=== PATIENT | male | born 1965 | race Caucasian/White ===

== ENCOUNTER 2019-10-17 09:58 | Emergency (ER) | payer SELFPAY ==
[~2019-10-17] VITALS: Ht 170.2 cm; Wt 93.5 kg
--- NOTE | 2019-10-17 10:25 | NUR ---
PT AMBULATED BACK TO ROOM WITH A SMOOTH AND STEADY GAIT, NAD, P/W/D, RESP WNL, FCS NO SOB, SPEECH SLIGHTLY RUSHED, VSS, WCTM. PT AMBULATED TO AND FROM BATHROOM WITH A SMOOTH AND STEADY GAIT, UA COLLECTED, RESTING ON GURNEY, CHANGED INTO GOWN, CALL LIGHT ON LAP. YODIT NÚÑEZ AT FOR EVAL AND DISCUSSING POC.
[2019-10-17] MEDS ORDERED: KETOROLAC 30 MG/1 ML IVPush ONE (10:30)
[2019-10-17] MEDS ORDERED: MORPHINE SULFATE 4 MG/ML, 1ML IVPush PRN (10:30)
[2019-10-17] MEDS ORDERED: SODIUM CHLORIDE FLUSH 10ML SYR IVF ONE (10:30)
[2019-10-17] MEDS ORDERED: ONDANSETRON 2MG/ML, 2ML IVPush ONE (10:30)
[2019-10-17] MEDS ORDERED: KETOROLAC 30 MG/1 ML ONE (10:35)
[2019-10-17] MEDS ORDERED: ONDANSETRON 2MG/ML, 2ML ONE (10:35)
[2019-10-17 11:12] LABS: BASOPHILS # (AUTO) 0.04 x10^3/uL (0-0.1); BASOPHILS % (AUTO) 1 % (0-1); EOSINOPHILS # (AUTO) 0.19 x10^3/uL (0-0.4); EOSINOPHILS % (AUTO) 4 % (1-7); LYMPHOCYTES # (AUTO) 2.33 x10^3/uL (1-3.4); LYMPHOCYTES % (AUTO) 43 % (22-44); MD NO; MEAN CORPUSCULAR HEMOGLOBIN 28.7 pg (27.5-34.5); MEAN CORPUSCULAR HGB CONC 34.5 g/dL (33.2-36.2); MEAN PLATELET VOLUME 8.9 fL (7.4-10.4); MONOCYTES # (AUTO) 0.42 x10^3/uL (0.2-0.8); MONOCYTES % (AUTO) 8 % (2-9); NEUTROPHILS # (AUTO) 2.43 x10^3/uL (1.8-6.8); NEUTROPHILS % (AUTO) 45 % (42-75); PLATELET COUNT 177 x10^3/uL (130-400); RED BLOOD COUNT 5.93 x10^6/uL (4.38-5.82); RED CELL DISTRIBUTION WIDTH 13.2 % (9.4-14.8)
[2019-10-17 11:22] LABS: ALBUMIN 4.1 g/dL (3.4-5.0); ANION GAP 3 mmol/L (5-15); CALCIUM 9.2 mg/dL (8.5-10.1); CHLORIDE 107 mmol/L (98-107)
[2019-10-17 11:25] LABS: MICROSCOPIC NOT IND
[2019-10-17 11:27] LABS: ALANINE AMINOTRANSFERASE 93 U/L (12-78); ALKALINE PHOSPHATASE 83 U/L (45-117); BILIRUBIN,TOTAL 0.6 mg/dL (0.2-1.0); CREATININE 0.95 mg/dL (0.7-1.3); TOTAL PROTEIN 7.7 g/dL (6.4-8.2)
--- NOTE | 2019-10-17 11:30 | NUR ---
PT TAKEN TO CT VIA LA[facility] BOURNE, RESP WNL, P/W/D.
[2019-10-17 11:37] LABS: CULTURE INDICATED? NO
[2019-10-17 12:20] VITALS: BP 114/92
--- NOTE | 2019-10-17 12:40 | NUR ---
Patient given discharge instructions and they have confirmed that they understand the instructions. Patient ambulatory with steady gait. Denies additional questions at this time, NAD, RESP WNL, VSS, MAEx4. COnfirmed he will follow up with st[facility]
== END 2019-10-17 12:38 | disposition home or self-care (01) ==
LOC: ED 11:57
DX: E11.65 Type 2 diabetes mellitus with hyperglycemia (principal); I10 Essential (primary) hypertension; R10.9 Unspecified abdominal pain; R31.9 Hematuria, unspecified; M54.9 Dorsalgia, unspecified
CPT/HCPCS: 36415; 74176; 80053; 81003; 83690; 85025; 96374; 96375; 99284; J1885; J2405

== ENCOUNTER 2020-03-20 10:28 | Emergency (ER) | payer SELFPAY ==
[~2020-03-20] VITALS: Ht 170.2 cm; Wt 92.2 kg
--- NOTE | 2020-03-20 11:18 | NUR ---
PT WITH MULTIPLE COMPLAINTS. PT WITH COUGH X 1WEEK, SUBJECTIVE FEVERS X1 WEEK. ABD BLOATING, FLANK PAIN, PAINFUL URINATION. PT WITH PRESSURE IN HEAD, CONGESTION FOR "A WHILE" PT TO ALL MONITORS AT THIS TIME, WILL CTM
[2020-03-20 11:22] LABS: BASOPHILS % (AUTO) 1 % (0-1); EOSINOPHILS % (AUTO) 4 % (1-7); LYMPHOCYTES % (AUTO) 41 % (22-44); MEAN CORPUSCULAR HEMOGLOBIN 28.6 pg (27.5-34.5); MEAN CORPUSCULAR HGB CONC 35.1 g/dL (33.2-36.2); MEAN PLATELET VOLUME 8.6 fL (7.4-10.4); MONOCYTES % (AUTO) 8 % (2-9); NEUTROPHILS % (AUTO) 47 % (42-75); PLATELET COUNT 161 x10^3/uL (130-400); RED CELL DISTRIBUTION WIDTH 12.9 % (9.4-14.8)
[2020-03-20 11:29] LABS: MD NO
[2020-03-20 11:34] LABS: ALBUMIN 3.8 g/dL (3.4-5.0); ANION GAP 8 mmol/L (5-15); CALCIUM 9.3 mg/dL (8.5-10.1); CHLORIDE 104 mmol/L (98-107); CREATININE 1.03 mg/dL (0.7-1.3)
[2020-03-20 11:37] VITALS: BP 168/82
[2020-03-20 11:43] LABS: ALANINE AMINOTRANSFERASE 113 U/L (12-78); ALKALINE PHOSPHATASE 104 U/L (45-117); BILIRUBIN,TOTAL 0.8 mg/dL (0.2-1.0); TOTAL PROTEIN 7.6 g/dL (6.4-8.2)
[2020-03-20 11:51] LABS: MICROSCOPIC NOT IND
[2020-03-20] MEDS ORDERED: SODIUM CHLORIDE 0.9% 1,000ML IVBOLUS ONE (12:00)
--- NOTE | 2020-03-20 12:24 | NUR ---
PIV INITIATED. PT MEDICATED PER AUG. ERMD IN TO UPDATE ON POC
[2020-03-20] MEDS ORDERED: metFORMIN 500 MG TABLET PO ONE (13:30)
--- NOTE | 2020-03-20 14:07 | NUR ---
PHARMACY CALLED, STILL WAITING ON MEDICATION. THEY WILL SEND NOW PER TECH
--- NOTE | 2020-03-20 14:49 | NUR ---
PT REFUSED METFORMIN DOSE, WANTS TO FILL AT PHARMACY AND TAKE DOSE ON HIS OWN. GIVEN DC PAPERWORK. ERMD UPDATED
== END 2020-03-20 14:49 | disposition home or self-care (01) ==
LOC: ED 13:33
DX: J01.00 Acute maxillary sinusitis, unspecified (principal); E11.65 Type 2 diabetes mellitus with hyperglycemia; R11.2 Nausea with vomiting, unspecified; R51.9 Headache, unspecified; R19.7 Diarrhea, unspecified; R50.9 Fever, unspecified; R05 Cough; R42 Dizziness and giddiness; H93.19 Tinnitus, unspecified ear; R53.1 Weakness; R30.0 Dysuria; I10 Essential (primary) hypertension
CPT/HCPCS: 36415; 71045; 80053; 81003; 82962; 83690; 85025; 96360; 99284; J7030

== ENCOUNTER 2020-08-30 07:29 | Emergency (ER) | payer SELFPAY ==
[~2020-08-30] VITALS: Ht 170.2 cm; Wt 92.4 kg
--- NOTE | 2020-08-30 07:37 | NUR ---
EKG IN TRIAGE
--- NOTE | 2020-08-30 07:44 | NUR ---
pt was driving to work and hd sudden onset of stabbing chest pain in the left side that radiates to L neck and L arm. Currently rating pain 3/10, has nasuea and diaphoresis. Connected to all monitors, changed into gown independently, speaking in full sentences, A&O x4, side rails up, positioned for comfort. VSS
[2020-08-30] MEDS ORDERED: NITROGLYCERIN SINGLE TAB 0.4 MG SL ONE (07:55)
[2020-08-30] MEDS ORDERED: ASPIRIN 81 MG TABLET CHEW ONE (07:56)
[2020-08-30] MEDS ORDERED: ASPIRIN 81 MG TABLET CHEW PO ONE (08:00)
[2020-08-30] MEDS ORDERED: NITROGLYCERIN SINGLE TAB 0.4 MG SL PRN (08:00)
[2020-08-30] MEDS ORDERED: SODIUM CHLORIDE FLUSH 10ML SYR IVF ONE (08:00)
--- NOTE | 2020-08-30 08:05 | NUR ---
pt medicated per MAR
--- NOTE | 2020-08-30 08:10 | NUR ---
chest pain resolved with 0.4 nitro SL and 162 chewable asa
[2020-08-30 08:19] LABS: BASOPHILS % (AUTO) 2 % (0-1); EOSINOPHILS % (AUTO) 6 % (1-7); LYMPHOCYTES % (AUTO) 36 % (22-44); MEAN CORPUSCULAR HEMOGLOBIN 28.9 pg (27.5-34.5); MEAN CORPUSCULAR HGB CONC 35.1 g/dL (33.2-36.2); MONOCYTES % (AUTO) 10 % (2-9); NEUTROPHILS % (AUTO) 47 % (42-75); PLATELET COUNT 166 x10^3/uL (130-400); RED BLOOD COUNT 5.76 x10^6/uL (4.38-5.82); RED CELL DISTRIBUTION WIDTH 13.3 % (9.4-14.8)
[2020-08-30 08:23] LABS: MD NO
[2020-08-30 08:28] LABS: ANION GAP 7 mmol/L (5-15); CALCIUM 9.3 mg/dL (8.5-10.1); CHLORIDE 104 mmol/L (98-107); CREATININE 0.97 mg/dL (0.7-1.3)
[2020-08-30 08:33] LABS: TROPONIN I < 0.015 ng/mL (0.000-0.045)
[2020-08-30 09:05] VITALS: BP 144/87
--- NOTE | 2020-08-30 09:05 | NUR ---
Pt currently resting in bed with SO at bedside, denies needs at this time.
--- NOTE | 2020-08-30 09:23 | NUR ---
Dr. Devine at bedside to discuss POC with pt.
== END 2020-08-30 10:03 | disposition home or self-care (01) ==
LOC: ED 08:29
DX: R07.2 Precordial pain (principal); E11.9 Type 2 diabetes mellitus without complications
CPT/HCPCS: 36415; 71045; 80048; 82040; 83880; 84484; 85025; 93005; 99285

== ENCOUNTER 2020-11-25 12:45 | Emergency (ER) | payer SELFPAY ==
[~2020-11-25] VITALS: Ht 170.2 cm; Wt 89.4 kg
--- NOTE | 2020-11-25 14:02 | NUR ---
repairer helper: Pt ambulatory to room from lobby at this time.
[2020-11-25 14:23] VITALS: BP 142/86
[2020-11-25] MEDS ORDERED: DEXAMETHASONE 4 MG TABLET ONE (14:26)
--- NOTE | 2020-11-25 14:28 | NUR ---
FINANCIAL ACCOUNTANT PER MAR
[2020-11-25] MEDS ORDERED: DEXAMETHASONE 4 MG TABLET PO ONE (14:30)
== END 2020-11-25 14:47 | disposition home or self-care (01) ==
LOC: ED 14:00
DX: R05 Cough (principal); Z20.822 Contact with and (suspected) exposure to COVID-19; R06.02 Shortness of breath; R51.9 Headache, unspecified; J02.9 Acute pharyngitis, unspecified; R50.9 Fever, unspecified; R94.31 Abnormal electrocardiogram [ECG] [EKG]; E11.9 Type 2 diabetes mellitus without complications
CPT/HCPCS: 71045; 93005; 99285; U0003; U0005